=== PATIENT | male | born 1955 | race Two or more races ===

== ENCOUNTER 2025-05-09 07:35 | Outpatient (CLI) | payer OTHER ==
[~2025-05-09 07:35] MED LIST: AMBIEN10 MG PO; COZAAR25 MG PO; DOCUSATE SODIU100 MG PO; METFORMIN HCL1000 MG PO; NIASPAN500 MG PO; PERCOCET 5/3251 TAB PO; SIMVASTATIN40 MG PO
== END 2025-05-09 07:36 | disposition home or self-care (01) ==
LOC: NUCLEAR 07:35
PROVIDERS: ATTEND Internal Medicine
DX: R07.89 Other chest pain (principal); I10 Essential (primary) hypertension; E11.21 Type 2 diabetes mellitus with diabetic nephropathy; N18.32 Chronic kidney disease, stage 3b

== ENCOUNTER → 2025-05-27 07:17 | Outpatient (CLI) | payer OTHER ==
[~2025-05-27 07:17] MED LIST changes: +AMIODARONE HCL200 MG PO; +AMOX-CLAV 875-1 EAC1 PO; +COLCHICINE0.6 MG PO; +ELIQUIS5 MG PO; +INTESTINEX680 M1 PO; +LIPITOR40 M1 PO; +TOPROL XL25 M1 PO
== END | disposition home or self-care (01) ==
LOC: NUCLEAR 07:00
PROVIDERS: ATTEND Internal Medicine
DX: I20.9 Angina pectoris, unspecified (principal)
CPT/HCPCS: 78452; 93017; A9500

== ENCOUNTER 2025-06-24 14:56 | Inpatient (IN) | payer OTHER ==
[~2025-06-24] VITALS: Ht 185.4 cm; Wt 103.0 kg
[~2025-06-24 14:56] MED LIST changes: -AMIODARONE HCL200 MG PO; -AMOX-CLAV 875-1 EAC1 PO; -COLCHICINE0.6 MG PO; -ELIQUIS5 MG PO; -INTESTINEX680 M1 PO; -LIPITOR40 M1 PO; -TOPROL XL25 M1 PO
[2025-06-24] MEDS ORDERED: 0.9 % SODIUM CHLORIDE 1,000 ML IV ONE (15:45)
[2025-06-24] MEDS ORDERED: DILTIAZEM HCL 25 MG/5 ML VIAL IV ONE ×2 (15:51→16:15)
--- NOTE | 2025-06-24 15:58 | NUR ---
SE RECIBE PACIENTE ALERTA Y CONCIENTE X3. EL MISMO REFIERE QUE DESDE LA MANANA DE HOY COMIENZA A SENTIRSE DEBIL, CON DOLOR DE HERBER, DOLOR ABDOMINAL Y DIFUCULTAD PARA CAMINAR. SE PROCEDE A BDU S/V AL PACIENTE Y SE LE REALIZA EKG ANGELA ES EVALUADO POR EL DR. BOO. QUIEN REFIERE COLOCAR A PACIENTE EN AREA DE CRITICO. SE PROCEDE A HUBICAR PACIENTE EN CAMA 3 CON BARANDAS ELEVADAS Y NIVEL MAS BAJO DE LA MISMA. SE CONECTA A MONITOR CARDIACO CON OXYMETRIA DE PULSO. SE PROCEDE A CANALIZAR X2 PACIENTE BAJO MEIDDAS ASEPTICAS TANGELA DE EDEMA Y ERITEMA, PATENTES. SE PROCEDE A BUD MUESTRAS DE LABORATORIO BAJO MEIDDAS ASEPTICAS.
[2025-06-24 16:12] LABS: BASO % 0.3 % (0.1-1.2); EOS # 0.10 (0.04-0.54); EOS % 0.6 % (0.7-7.0); LYMPH # 1.51 (1.18-3.74); LYMPH % 8.8 % (19.3-53.1); MEAN PLATELET VOLUME 11.20 fl (9.4-12.4); MONO # 1.71 (0.24-0.82); MONO % 10.0 % (4.7-12.5); NEUT # 13.69 (1.56-6.13); NEUT % 79.8 % (34.0-71.1); RED CELL DISTRIBUTION WIDTH 15.2 % (11.6-14.4)
[2025-06-24] MEDS ORDERED: ENOXAPARIN SODIUM 40 MG/0.4 ML SYRINGE SUBCUTANEO ONE (16:13)
[2025-06-24] MEDS ORDERED: ENOXAPARIN SODIUM 60 MG/0.6 ML SYRINGE SUBCUTANEO ONE (16:13)
[2025-06-24] MEDS ORDERED: ENOXAPARIN SODIUM 100 MG/ML SYRINGE SUBCUTANEO ONE (16:15)
--- NOTE | 2025-06-24 16:15 | NUR ---
EVALUA PACIENTE. SE ORIENTA A PACIENTE SOBRE TRATAMIENTO MEDICO, REFIERE ENTENDER. SE ADMINISTRAN MEDICAMENTOS SHIRA ORDEN MEDICA. SE COORDINAN LEATHA X. SE MANTIENE A PACIENTE BAJO OBSERVACION.
[2025-06-24 16:35] LABS: INR 1.12
[2025-06-24 16:39] LABS: ALT/SGPT 22.0 U/L (12-78); AST/SGOT 25.0 U/L (15-37); BILIRUBIN TOTAL 0.79 mg/dL (0.3-1.2); BUN CREA RATIO 13.0 (7.0-25.0); CREATININE SERUM 2.62 mg/dL (0.70-1.30); GFR 24.53; GLOBULINA 3.8 G/DL (2.4-3.5); GLUCOSE FASTING 125.0 mg/dL (65-100); OSMOLALITY SERUM 290.0 MOSM/KG (275-295)
[2025-06-24] MEDS ORDERED: DILTIAZEM HCL 125 MG in 0.9 % SODIUM CHLORIDE 125 ML IV SCH (16:45)
--- NOTE | 2025-06-24 17:08 | NUR ---
PACIENTE CONTINUA CON PULSO EN 138/MIN. SE NOTIFICA A EL CUAL ORDENA DRIP DE CARDIZEM 125MG/125ML 0.9NSS A BAJAR A 5ML/HR. SE EJECUTA ORDEN MEDICA.SE MANTIENE A PACIENTE BAJO OBSERVACION.
[2025-06-24 17:36] LABS: URINE APPEARANCE Clear; URINE BILIRRUBIN Negative (NEGATIVE); URINE BLOOD Small; URINE COLOR Yellow; URINE KETONE Negative (NEGATIVE); URINE LEUKOCYTE Negative; URINE NITRATE Negative; URINE UROBILINOGEN 0.2 E.U./dl
[2025-06-24 17:43] LABS: URINE BACTERIA 29.9 uL (0.0-1933); URINE EPITHELIAL CELLS 21.9 uL (0.0-38.8); URINE RBC 2.3 uL (0.0-20.8); URINE WBC 8.3 uL (0.0-23.2)
[2025-06-24] MEDS ORDERED: ACETAMINOPHEN 500 MG GEL..CAP PO ONE ×2 (17:48→18:00)
[2025-06-24] MEDS ORDERED: CEFTRIAXONE SODIUM 2,000 MG VIAL ONE (17:49)
[2025-06-24] MEDS ORDERED: CEFTRIAXONE SODIUM 2,000 MG VIAL IV ONE (18:00)
--- NOTE | 2025-06-24 18:11 | NUR ---
RE-EVALUA PACIENTE. SE ORIENTA SOBRE TX MEDICO, REFIERE ENTENDER. SE ADMINISTRAN MEDICAMENTOS SHIRA ORDEN MEDICA. SE MANTIENE A PACIENTE BAJO OBSERVACION.
[2025-06-24 18:15] LABS: URINE CAST 1.02 uL (0.0-1.40); URINE GLUCOSE >=1000 MG/DL (NEGATIVE); URINE PROTEIN 300 (NEGATIVE)
[2025-06-24] MEDS ORDERED: CEFTRIAXONE SODIUM 1,000 MG VIAL IV SCH (19:04)
[2025-06-24] MEDS ORDERED: ATORVASTATIN CALCIUM 40 MG TABLET PO SCH (19:11)
[2025-06-24] MEDS ORDERED: DEXTROSE 50 % IN WATER 0.5 G/ML DISP.SYRIN IV PRN (19:15)
[2025-06-24] MEDS ORDERED: INSULIN LISPRO 1,000 UNIT/10 ML UNITS SUBCUTANEO PRN (19:15)
[2025-06-24] MEDS ORDERED: AMIODARONE HCL 900 MG in DEXTROSE 5 % IN WATER 500 ML IV SCH (19:15)
[2025-06-24] MEDS ORDERED: 0.9 % SODIUM CHLORIDE 1,000 ML IV SCH (19:15)
[2025-06-24] MEDS ORDERED: ENOXAPARIN SODIUM 100 MG/ML SYRINGE SUBCUTANEO SCH (19:16)
[2025-06-24] MEDS ORDERED: AMIODARONE HCL 900 MG/500 ML KIT IV ONE (19:39)
[2025-06-24 21:07] VITALS: BP 119/71; O2SAT 95
[2025-06-24 22:01] VITALS: BP 120/87; O2SAT 95
[2025-06-24 23:23] VITALS: BP 117/70; O2SAT 96
[2025-06-25] VITALS (13 sets, daily range): BP systolic 117–177; BP diastolic 56–99; O2SAT 94–99
[2025-06-25 06:26] LABS: BASO % 0.4 % (0.1-1.2); EOS # 0.12 (0.04-0.54); EOS % 0.8 % (0.7-7.0); LYMPH # 1.86 (1.18-3.74); LYMPH % 12.3 % (19.3-53.1); MEAN PLATELET VOLUME 11.70 fl (9.4-12.4); MONO # 1.68 (0.24-0.82); MONO % 11.1 % (4.7-12.5); NEUT # 11.34 (1.56-6.13); NEUT % 74.9 % (34.0-71.1); RED CELL DISTRIBUTION WIDTH 15.3 % (11.6-14.4)
[2025-06-26] VITALS (12 sets, daily range): BP systolic 122–162; BP diastolic 60–95; O2SAT 98–100
[2025-06-26 07:18] LABS: CHOL HDL RATIO 5.4 (0-5.0); HDL 22.0 mg/dl (40-60); LDL 61.0 mg/dl (0-130); PROSTATIC SPECIFIC ANTIGEN 0.446 NG/ML (0.010-4.00); T4 FREE 1.09 NG/ML (0.76-1.46); TSH 1.75 uIU/mL (0.358-3.74); VLDL 35.0 (0-39)
[2025-06-26] MEDS ORDERED: LACTOBACILLUS ACIDOPHILUS 1 CAP CAP PO SCH (09:00)
[2025-06-26] MEDS ORDERED: APIXABAN 5 MG TABLET PO SCH (09:00)
[2025-06-26] MEDS ORDERED: METOPROLOL SUCCINATE 25 MG TAB.SR.24H PO SCH (09:00)
[2025-06-26] MEDS ORDERED: AMIODARONE HCL 200 MG TABLET PO SCH (09:00)
[2025-06-26] MEDS ORDERED: AMINO ACIDS 1 EACH TABLET PO SCH (17:00)
[2025-06-27 04:00] VITALS: BP 119/62; O2SAT 97
[2025-06-27 07:08] VITALS: BP 144/71; O2SAT 98
[2025-06-27 07:15] LABS: BASO % 0.5 % (0.1-1.2); EOS # 0.39 (0.04-0.54); EOS % 3.9 % (0.7-7.0); LYMPH # 1.70 (1.18-3.74); LYMPH % 17.0 % (19.3-53.1); MEAN PLATELET VOLUME 10.90 fl (9.4-12.4); MONO # 0.96 (0.24-0.82); MONO % 9.6 % (4.7-12.5); NEUT # 6.79 (1.56-6.13); NEUT % 67.7 % (34.0-71.1); RED CELL DISTRIBUTION WIDTH 14.6 % (11.6-14.4)
[2025-06-27 08:00] LABS: ALT/SGPT 38.0 U/L (12-78); AST/SGOT 41.0 U/L (15-37); BILIRUBIN TOTAL 0.8 mg/dL (0.3-1.2); BUN CREA RATIO 12.0 (7.0-25.0); CREATININE SERUM 1.55 mg/dL (0.70-1.30); GFR 44.95; GLOBULINA 3.5 G/DL (2.4-3.5); GLUCOSE FASTING 113.0 mg/dL (65-100); OSMOLALITY SERUM 282.0 MOSM/KG (275-295)
[2025-06-27 12:00] VITALS: BP 159/81; O2SAT 100
[2025-06-27] MEDS ORDERED: COLCHICINE 0.6 MG TABLET PO STA (13:47)
[2025-06-27 15:11] VITALS: BP 154/86; O2SAT 100
[2025-06-27] MEDS ORDERED: SODIUM CHLORIDE 0.45 % 1,000 ML IV SCH (16:00)
[2025-06-27] MEDS ORDERED: COLCHICINE 0.6 MG TABLET PO ONE (18:50)
[2025-06-27 19:00] VITALS: BP 135/86; O2SAT 99
[2025-06-27 20:06] VITALS: BP 157/77; O2SAT 98
[2025-06-28 01:07] VITALS: BP 149/79; O2SAT 98
[2025-06-28 06:26] LABS: BASO % 0.5 % (0.1-1.2); EOS # 0.27 (0.04-0.54); EOS % 2.5 % (0.7-7.0); LYMPH # 1.69 (1.18-3.74); LYMPH % 15.7 % (19.3-53.1); MEAN PLATELET VOLUME 10.90 fl (9.4-12.4); MONO # 1.33 (0.24-0.82); NEUT # 7.30 (1.56-6.13); NEUT % 67.7 % (34.0-71.1); RED CELL DISTRIBUTION WIDTH 14.6 % (11.6-14.4)
[2025-06-28 06:44] LABS: MONO % 12.3 % (4.7-12.5)
[2025-06-28 06:59] LABS: ALT/SGPT 80.0 U/L (12-78); AST/SGOT 72.0 U/L (15-37); BILIRUBIN TOTAL 0.84 mg/dL (0.3-1.2); BUN CREA RATIO 12.0 (7.0-25.0); CREATININE SERUM 1.54 mg/dL (0.70-1.30); GFR 45.28; GLOBULINA 3.6 G/DL (2.4-3.5); GLUCOSE FASTING 133.0 mg/dL (65-100); OSMOLALITY SERUM 280.0 MOSM/KG (275-295)
[2025-06-28 07:16] LABS: ERYTHROCYTE SEDIMENTATION RATE 65 mm/hr (0-20)
[2025-06-28 08:00] VITALS: BP 143/83; O2SAT 99
[2025-06-28] MEDS ORDERED: COLCHICINE 0.6 MG TABLET PO SCH ×2 (09:00)
[2025-06-28] MEDS ORDERED: AMOX-CLAV 875-1 EAC1 PO (13:15)
[2025-06-28] MEDS ORDERED: ELIQUIS5 MG PO (13:15)
[2025-06-28] MEDS ORDERED: AMIODARONE HCL200 MG PO (13:15)
[2025-06-28] MEDS ORDERED: COLCHICINE0.6 MG PO (13:15)
[2025-06-28] MEDS ORDERED: INTESTINEX680 M1 PO (13:15)
[2025-06-28] MEDS ORDERED: LIPITOR40 M1 PO (13:15)
[2025-06-28] MEDS ORDERED: TOPROL XL25 M1 PO (13:15)
== END 2025-06-28 17:37 | disposition home or self-care (01) | DRG 309 ==
LOC: ER 14:56 → ICU-2 19:25 → MEDI 19:25 → ICU-2 20:16 → ICU 06-26 02:24 → SURH 06-27 18:07
PROVIDERS: General Practice; Internal Medicine Nephrology; ADMIT Internal Medicine; ATTEND Internal Medicine
PROC: B24BYZZ Ultrasonography of Heart with Aorta using Other Contrast (ICD-10-PCS; 2025-06-24)
PROC: BW21ZZZ Computerized Tomography (CT Scan) of Abdomen and Pelvis (ICD-10-PCS; principal; 2025-06-25)
DX: I48.91 Unspecified atrial fibrillation (principal); N17.9 Acute kidney failure, unspecified; E11.9 Type 2 diabetes mellitus without complications; Z79.4 Long term (current) use of insulin; I10 Essential (primary) hypertension

== ENCOUNTER 2025-07-10 10:06 | Inpatient (IN) | payer OTHER ==
[~2025-07-10] VITALS: Ht 182.9 cm; Wt 94.8 kg
[~2025-07-10 10:06] MED LIST changes: +AMIODARONE HCL200 MG PO; +AMOX-CLAV 875-1 EAC1 PO; +COLCHICINE0.6 MG PO; +ELIQUIS5 MG PO; +INTESTINEX680 M1 PO; +LIPITOR40 M1 PO; +TOPROL XL25 M1 PO
[2025-07-10] MEDS ORDERED: LIPITOR20 MG PO (10:29)
[2025-07-10] MEDS ORDERED: ASPIRIN81 MG PO (10:30)
[2025-07-10] MEDS ORDERED: FARXIGA10 MG PO (10:30)
[2025-07-10] MEDS ORDERED: GLIPIZIDE ER10 MG PO (10:30)
--- NOTE | 2025-07-10 11:00 | NUR ---
PACIENTE ALERTA Y ORIENTADO X3 EN COMPANIA DE FAMILIAR. PACIENTE REFIERE COMENZAR CON DEBILIDAD, MAREOS, SAGRADO RECTAL Y EN EXCRETA DESDE EL VIERNES PASADO. SE JOSE BP MANUL 70/50. SE REALIZA EKG Y SE PRESENTA A DR. GORDILLO. SE UBICA A PACIENTE EN AREA DE OBSERVACION Y SE CONECTA A MONITOR CARDIACO Y OXIMETRIA CONTINUA,
[2025-07-10] MEDS ORDERED: 0.9 % SODIUM CHLORIDE 1,000 ML IV STA (11:15)
--- NOTE | 2025-07-10 11:27 | NUR ---
ESTEVAN DICKERSON EDUCA A PACIENTE SOBRE TX MEDICO, ANGELA REFIERE ENTENDER. SE EXTRAEN MUESTRAS DE LABORATORIO SHIRA ORDEN MEDICA. SE CONECTA PACIENTE A MONITOR CARDIACO Y OXIMETRIA DE PULSO CONTINUA.
[2025-07-10 11:41] LABS: BASO % 0.6 % (0.1-1.2); EOS # 0.03 (0.04-0.54); EOS % 0.3 % (0.7-7.0); LYMPH # 1.18 (1.18-3.74); LYMPH % 11.2 % (19.3-53.1); MEAN PLATELET VOLUME 11.90 fl (9.4-12.4); MONO # 0.51 (0.24-0.82); MONO % 4.9 % (4.7-12.5); NEUT # 8.66 (1.56-6.13); NEUT % 82.5 % (34.0-71.1); RED CELL DISTRIBUTION WIDTH 15.3 % (11.6-14.4)
[2025-07-10 12:02] LABS: INR 1.15
[2025-07-10 12:07] LABS: ALT/SGPT 31.0 U/L (12-78); AST/SGOT 17.0 U/L (15-37); BILIRUBIN TOTAL 0.57 mg/dL (0.3-1.2); BUN CREA RATIO 23.0 (7.0-25.0); CREATININE SERUM 2.39 mg/dL (0.70-1.30); GFR 27.27; GLOBULINA 3.0 G/DL (2.4-3.5)
[2025-07-10 12:18] LABS: GLUCOSE FASTING 216.0 mg/dL (65-100); OSMOLALITY SERUM 294.0 MOSM/KG (275-295)
[2025-07-10] MEDS ORDERED: DIATRIZOATE MEGLUMINE, SODIUM 30 ML BOTTLE PO STA (14:26)
[2025-07-10] MEDS ORDERED: PANTOPRAZOLE SODIUM 40 MG/VIAL VIAL IV ONE (19:45)
[2025-07-10] MEDS ORDERED: ATORVASTATIN CALCIUM 40 MG TABLET PO SCH (20:26)
[2025-07-10] MEDS ORDERED: ALLOPURINOL 300 MG TABLET PO SCH (20:27)
[2025-07-10] MEDS ORDERED: PANTOPRAZOLE SODIUM 80 MG in 0.9 % SODIUM CHLORIDE 100 ML IV SCH (20:30)
[2025-07-10] MEDS ORDERED: AMIODARONE HCL 200 MG TABLET PO SCH (20:39)
[2025-07-10] MEDS ORDERED: ACETAMINOPHEN 325 MG TABLET PO PRN (20:45)
[2025-07-10] MEDS ORDERED: DEXTROSE 50 % IN WATER 0.5 G/ML DISP.SYRIN IV PRN (20:45)
[2025-07-10] MEDS ORDERED: 0.9 % SODIUM CHLORIDE 1,000 ML IV SCH (20:45)
[2025-07-10] MEDS ORDERED: ONDANSETRON HCL 4 MG in 0.9 % SODIUM CHLORIDE 50 ML IV PRN (20:45)
[2025-07-10] MEDS ORDERED: INSULIN LISPRO 1,000 UNIT/10 ML UNITS SUBCUTANEO PRN (20:45)
[2025-07-10] MEDS ORDERED: hydrALAZINE HCL 20 MG VIAL IV PRN (20:45)
[2025-07-10 22:34] VITALS: BP 94/62; O2SAT 99
[2025-07-10 22:52] LABS: ob POSITIVE (NEGATIVE)
[2025-07-11 00:04] LABS: URINE APPEARANCE Clear; URINE BILIRRUBIN Negative (NEGATIVE); URINE BLOOD Negative; URINE COLOR Yellow; URINE KETONE Negative (NEGATIVE); URINE LEUKOCYTE Negative; URINE NITRATE Negative; URINE PROTEIN 30 (NEGATIVE); URINE UROBILINOGEN 0.2 E.U./dl
[2025-07-11 00:08] LABS: URINE BACTERIA 14.3 uL (0.0-1933); URINE EPITHELIAL CELLS 2.7 uL (0.0-38.8); URINE WBC 3.5 uL (0.0-23.2)
[2025-07-11 00:20] LABS: URINE CAST 1.17 uL (0.0-1.40); URINE GLUCOSE >=1000 MG/DL (NEGATIVE); URINE RBC 1.6 uL (0.0-20.8)
[2025-07-11 09:06] VITALS: BP 109/66; O2SAT 99
[2025-07-11] MEDS ORDERED: SOD FERRIC GLUC COMPLX/SUCROSE 62.5 MG in 0.9 % SODIUM CHLORIDE 50 ML IV SCH (13:00)
[2025-07-11] MEDS ORDERED: Cyanocobalamin/Mecobalamin 1 TAB.SL SL SCH (17:00)
[2025-07-11 17:56] VITALS: BP 118/60
[2025-07-12 03:25] VITALS: BP 113/67; O2SAT 96
[2025-07-12 09:06] VITALS: BP 120/72; O2SAT 96
[2025-07-12] MEDS ORDERED: PANTOPRAZOLE SODIUM 40 MG/VIAL VIAL ONE (14:21)
[2025-07-12 15:31] LABS: BASO % 0.4 % (0.1-1.2); EOS # 0.13 (0.04-0.54); EOS % 1.4 % (0.7-7.0); LYMPH # 1.74 (1.18-3.74); LYMPH % 18.3 % (19.3-53.1); MEAN PLATELET VOLUME 11.70 fl (9.4-12.4); MONO # 0.81 (0.24-0.82); MONO % 8.5 % (4.7-12.5); NEUT # 6.75 (1.56-6.13); NEUT % 70.9 % (34.0-71.1); RED CELL DISTRIBUTION WIDTH 15.7 % (11.6-14.4)
[2025-07-12 18:34] VITALS: BP 127/73
[2025-07-12 21:34] LABS: COL EPI 88 SECONDS (82-175)
[2025-07-12 21:44] LABS: D DIMER 0.31 MG/L
[2025-07-13 03:51] VITALS: BP 131/66; O2SAT 98
[2025-07-13 08:59] VITALS: BP 131/74; O2SAT 98
[2025-07-13 17:29] VITALS: BP 132/70; O2SAT 100
[2025-07-13] MEDS ORDERED: SODIUM POLYSTYRENE SULFONATE 30G/8 TSP PO SCH (18:00)
[2025-07-14 01:00] VITALS: BP 98/49; O2SAT 98
[2025-07-14 08:29] VITALS: BP 116/57; O2SAT 96
[2025-07-14 17:23] VITALS: BP 128/66; O2SAT 98
[2025-07-15 02:52] VITALS: BP 116/62
[2025-07-15 06:11] LABS: BASO % 0.5 % (0.1-1.2); EOS # 0.19 (0.04-0.54); EOS % 2.3 % (0.7-7.0); LYMPH # 1.53 (1.18-3.74); LYMPH % 18.6 % (19.3-53.1); MEAN PLATELET VOLUME 12.00 fl (9.4-12.4); MONO # 0.76 (0.24-0.82); MONO % 9.2 % (4.7-12.5); NEUT # 5.68 (1.56-6.13); NEUT % 69.0 % (34.0-71.1); RED CELL DISTRIBUTION WIDTH 18.5 % (11.6-14.4)
[2025-07-15 06:48] LABS: ALT/SGPT 20.0 U/L (12-78); AST/SGOT 15.0 U/L (15-37); BILIRUBIN TOTAL 0.95 mg/dL (0.3-1.2); BUN CREA RATIO 8.0 (7.0-25.0); CREATININE SERUM 1.59 mg/dL (0.70-1.30); GFR 43.64; GLOBULINA 2.5 G/DL (2.4-3.5); GLUCOSE FASTING 97.0 mg/dL (65-100); OSMOLALITY SERUM 291.0 MOSM/KG (275-295)
[2025-07-15] MEDS ORDERED: SOD FERRIC GLUC COMPLX/SUCROSE 62.5 MG/5 ML AMPUL IV ONE (09:22)
[2025-07-15 09:52] VITALS: BP 130/72; O2SAT 99
[2025-07-15] MEDS ORDERED: MIDAZOLAM HCL 2 MG/2 ML VIAL IV ONE (17:45)
[2025-07-15] MEDS ORDERED: DIPHENHYDRAMINE HCL 50 MG/ML VIAL 1ML IV NR (17:45)
[2025-07-15] MEDS ORDERED: fentaNYL CITRATE 50 MCG/ML AMPUL IV PUSH ONE (17:45)
[2025-07-15] MEDS ORDERED: PEG3350/SOD SULF,BICARB,CL/KCL 4,000 ML GALLON PO NR (19:00)
[2025-07-15 19:18] VITALS: BP 132/70; O2SAT 98
[2025-07-16 00:55] VITALS: BP 125/72; O2SAT 97
[2025-07-16] MEDS ORDERED: NA PHOS,M-B/NA PHOS,DI-BA 1 BOTTLE ENEMA RECTAL NR (06:00)
[2025-07-16] MEDS ORDERED: fentaNYL CITRATE 50 MCG/ML AMPUL IV PUSH ONE (08:45)
[2025-07-16] MEDS ORDERED: DIPHENHYDRAMINE HCL 50 MG/ML VIAL 1ML IV ONE (08:45)
[2025-07-16] MEDS ORDERED: MIDAZOLAM HCL 2 MG/2 ML VIAL IV ONE (08:45)
[2025-07-16 09:00] VITALS: BP 130/75; O2SAT 96
[2025-07-16 16:57] VITALS: BP 133/70; O2SAT 95
[2025-07-16] MEDS ORDERED: SODIUM CHLORIDE 0.45 % 1,000 ML IV SCH (19:00)
[2025-07-17 03:12] VITALS: BP 118/68; O2SAT 99
[2025-07-17] MEDS ORDERED: DEXAMETHASONE SODIUM PHOSPHATE 4 MG/ML VIAL IV STA (08:51)
[2025-07-17 09:28] VITALS: BP 102/60; O2SAT 99
[2025-07-17 18:22] VITALS: BP 131/74; O2SAT 95
[2025-07-17] MEDS ORDERED: PANTOPRAZOLE SODIUM 80 MG in 0.9 % SODIUM CHLORIDE 100 ML IV SCH (22:00)
[2025-07-18 00:27] VITALS: BP 105/58; O2SAT 98
[2025-07-18 05:38] LABS: BASO % 0.1 % (0.1-1.2); EOS # 0.03 (0.04-0.54); EOS % 0.4 % (0.7-7.0); LYMPH # 0.71 (1.18-3.74); LYMPH % 8.4 % (19.3-53.1); MEAN PLATELET VOLUME 11.70 fl (9.4-12.4); MONO # 0.59 (0.24-0.82); MONO % 7.0 % (4.7-12.5); NEUT # 7.11 (1.56-6.13); NEUT % 83.7 % (34.0-71.1); RED CELL DISTRIBUTION WIDTH 16.1 % (11.6-14.4)
[2025-07-18 10:08] VITALS: BP 106/61; O2SAT 97
[2025-07-18] MEDS ORDERED: B Complex PO (13:15)
[2025-07-18] MEDS ORDERED: PROTONIX40 MG PO (13:15)
[2025-07-18] MEDS ORDERED: Neurin-Sl Tablet Sl SL (13:15)
[2025-07-18] MEDS ORDERED: INTEGRA PLUS C1 EACH PO (13:15)
== END 2025-07-18 13:39 | disposition home or self-care (01) | DRG 378 ==
LOC: ER 10:06 → MEDI 20:49 → SEC-K 20:49 → MEDI 07-11 01:02
PROVIDERS: General Practice; Internal Medicine Hematology & Oncology; Internal Medicine Nephrology; ADMIT Internal Medicine; ATTEND Internal Medicine
PROC: 4A12X4Z Monitoring of Cardiac Electrical Activity, External Approach (ICD-10-PCS; 2025-07-10)
PROC: BW21ZZZ Computerized Tomography (CT Scan) of Abdomen and Pelvis (ICD-10-PCS; 2025-07-10)
PROC: 30233N1 Transfusion of Nonautologous Red Blood Cells into Peripheral Vein, Percutaneous Approach (ICD-10-PCS; 2025-07-11)
PROC: 0DB78ZX Excision of Stomach, Pylorus, Via Natural or Artificial Opening Endoscopic, Diagnostic (ICD-10-PCS; principal; 2025-07-16)
PROC: 0DJD8ZZ Inspection of Lower Intestinal Tract, Via Natural or Artificial Opening Endoscopic (ICD-10-PCS; 2025-07-16)
PROC: 05HY33Z Insertion of Infusion Device into Upper Vein, Percutaneous Approach (ICD-10-PCS; 2025-07-16)
PROC: 30233N1 Transfusion of Nonautologous Red Blood Cells into Peripheral Vein, Percutaneous Approach (ICD-10-PCS; 2025-07-16)
DX: K62.5 Hemorrhage of anus and rectum (principal); D62 Acute posthemorrhagic anemia; N17.9 Acute kidney failure, unspecified; I48.20 Chronic atrial fibrillation, unspecified; E87.0 Hyperosmolality and hypernatremia; K29.50 Unspecified chronic gastritis without bleeding; K57.30 Diverticulosis of large intestine without perforation or abscess without bleeding; D64.89 Other specified anemias; K64.4 Residual hemorrhoidal skin tags; K64.8 Other hemorrhoids; I95.9 Hypotension, unspecified; I12.9 Hypertensive chronic kidney disease with stage 1 through stage 4 chronic kidney disease, or unspecified chronic kidney disease; N18.30 Chronic kidney disease, stage 3 unspecified; E11.22 Type 2 diabetes mellitus with diabetic chronic kidney disease; E78.5 Hyperlipidemia, unspecified; Z79.01 Long term (current) use of anticoagulants; Z87.891 Personal history of nicotine dependence